=== PATIENT | female | born 1960 | race Caucasian/White ===

== ENCOUNTER 2022-10-01 08:24 | Outpatient (CLI) | payer OTHER, SELFPAY ==
[2022-10-01] MEDS: CLINDAMYCIN 600 MG/50 ML-D5W 600 MG/50 ML PIGGYBACK 100 MG IVPB (09:41)
--- NOTE | 2022-10-01 11:04 | W.ANESCHARGE ---
Anesthesia Charges Start Date/Time Anesthesia Start Date: 10/01/22 Anesthesia Start Time: 10:40 Stop Date/Time Anesthesia Stop Date: 10/01/22 Anesthesia Stop Time: 11:00
== END 2022-10-01 08:25 | disposition home or self-care (01) ==
PROVIDERS: PCP Physician Assistant Medical; Visit Provider Internal Medicine Gastroenterology
DX: R13.10 Dysphagia, unspecified (principal); K22.2 Esophageal obstruction; K44.9 Diaphragmatic hernia without obstruction or gangrene
CPT/HCPCS: 43248; 731; J2704; S0077

== ENCOUNTER 2023-02-19 10:45 | Outpatient (CLI) | payer OTHER, SELFPAY | END 2023-02-19 10:46 | disposition home or self-care (01) | LOC: INJ CL 10:46 | PROVIDERS: PCP Physician Assistant Medical; Visit Provider Family Medicine | DX: M54.16 Radiculopathy, lumbar region (principal); M51.36 Other intervertebral disc degeneration, lumbar region | CPT/HCPCS: 64483; J1100; Q9966 ==

== ENCOUNTER 2023-08-14 16:38 | Outpatient (CLI) | payer OTHER, SELFPAY | END 2023-08-14 16:39 | disposition home or self-care (01) | LOC: NFLDREF 08-19 03:20 | PROVIDERS: PCP Physician Assistant Medical; Referring Provider Physician Assistant Medical; Visit Provider Nurse Practitioner Family | DX: J02.9 Acute pharyngitis, unspecified (principal); R30.0 Dysuria | CPT/HCPCS: 87086; 87186 ==

== ENCOUNTER 2023-10-14 14:17 | Outpatient (CLI) | payer OTHER, SELFPAY ==
--- NOTE | 2023-10-14 14:30 | MR_ITS ---
Patient: SHARIF YATES Facility:?[facility] Patient ID:?[id number] Site Patient ID:?[id number]. Site :?[id number] Study:?MRI-Spine Lumbar WO-10/14/2023 4:02:50 PM Ordering Physician:MACARIO Final Report: Indication: Lumbar spinal stenosis. Technique: Noncontrast sagittal and axial T1, T2, and sagittal STIR sequences are provided. Comparison: No prior studies available for comparison at this institution. Findings: Mild levocurvature with apex at L3. There are 5 lumbar type vertebral bodies. Grade 1 anterolisthesis at L5-S1. Suggestion of possible left L5 pars defect. Benign intraosseous hemangioma in the T11 vertebral body. The conus medullaris is normal in signal and location. Anterior osteophytic spurring at L1-2 and L2-3 levels. Incidental bilateral renal simple cysts. Atrophy of paraspinal muscles. T12-L1: No significant spinal canal stenosis or neural foramen narrowing. L1-2: No significant spinal canal stenosis or neural foramen narrowing. L2-3: Mild circumferential disc bulge indents the ventral thecal sac. No significant spinal canal stenosis or neural foramen narrowing. L3-4: Circumferential disc bulge. Small left foramen disc protrusion. No significant spinal canal stenosis or neural foramen narrowing. L4-5: Mild posterior disc bulge, moderate facet arthrosis and ligamentum flavum buckling. Mild spinal canal narrowing. Mild left neural foramen narrowing. No right neural foramen narrowing. L5-S1: There is suggestion of possible left L5 pars defect. Grade 1 anterolisthesis, uncovering of the disc. Moderate facet arthrosis. Ankylosis of the left facet joint. No significant spinal canal stenosis. Mild neural foramina narrowing bilaterally. Impression : 1. No acute osseous or ligamentous abnormality. Grade 1 anterolisthesis at L5-S1 due to possible chronic left L5 pars defect. This could be further evaluated with CT. Ankylosis of the left L5-S1 facet joint. 2. At L5-S1, there is mild bilateral neural foramen narrowing. 3. At L4-5, there is mild spinal canal narrowing and mild left neural foramen narrowing. 4. At L3-4, there is a disc bulge and small left neural foramen disc protrusion without significant foramen stenosis. 5. No intradural pathology. Dictated by Masoud Del Cid MD @ 10/14/2023 4:17:46 PM Signed by:?Masoud Del Cid MD @10/14/2023 4:17:46 PM (Electronic Signature)
--- NOTE | 2023-10-14 15:15 | MR_ITS ---
Patient: SHARIF YATES Facility:?[facility] Patient ID:?[id number] Site Patient ID:?[id number]. Site :?1960 Study:?MRI-Hip Left WO-10/14/2023 4:04:48 PM Ordering Physician:MACARIO Final Report: EXAM: MRI OF THE LEFT HIP, WITHOUT CONTRAST CLINICAL INDICATION: Left hip pain. COMPARISON PLAIN FILMS: None. COMPARISON CROSS-SECTIONAL IMAGING STUDIES: None. TECHNICAL: Axial, sagittal and coronal PD FS small field of view images of the hip. Coronal T1, PD FS and axial T1 images of the pelvis. FINDINGS: LEFT HIP: Labrum: No labral tear or paralabral cyst. Articular Cartilage: Articular surfaces appear smooth without focal chondral defect or subchondral marrow changes. Joint Space: No effusion, synovitis or loose body. Proximal Femoral Morphology: No significant osseous bump. Femoral head-neck offset is within normal limits. Acetabular Morphology: No focal or global retroversion. No significant overcoverage. RIGHT HIP: No effusion or high-grade chondromalacia. No paralabral cyst. OSSEOUS STRUCTURES: No fracture, marrow edema or marrow replacement process. No evidence for avascular necrosis. MUSCULOTENDINOUS STRUCTURES AND BURSAE: Gluteus Minimus and Medius: Mild left gluteus medius tendinopathy. No tendon tear. No muscle atrophy or edema. Bursae: No trochanteric or iliopsoas bursitis. Common Hamstrings: No tendon tear or tendinopathy. Adductors and Flexors: Tendons and myotendinous junctions are intact. No muscle atrophy or edema. SOFT TISSUES: No subcutaneous edema, hematoma or fluid collection. OTHER JOINTS: Sacroiliac joints are maintained. Pubic symphysis is maintained. INTRAPELVIC CONTENTS: No mass, fluid collection or adenopathy. No inguinal hernia. NEUROVASCULAR STRUCTURES: No abnormality involving the visualized proximal femoral or proximal sciatic nerves. No aneurysmal dilation of the visualized distal aorta or iliac arterial circulation. IMPRESSION: 1. Mild left gluteus medius tendinopathy. 2. Remainder unremarkable. Dictated by Paramjit Pena MD @ 10/15/2023 8:55:21 AM Signed by:?Paramjit Pena MD @10/15/2023 8:55:21 AM (Electronic Signature)
== END 2023-10-14 14:18 | disposition home or self-care (01) ==
LOC: MRI 14:18
PROVIDERS: PCP Physician Assistant Medical; Visit Provider Family Medicine
DX: M48.061 Spinal stenosis, lumbar region without neurogenic claudication (principal); M51.36 Other intervertebral disc degeneration, lumbar region; M51.26 Other intervertebral disc displacement, lumbar region; M54.16 Radiculopathy, lumbar region; M54.17 Radiculopathy, lumbosacral region; M25.512 Pain in left shoulder
CPT/HCPCS: 72148; 73721

== ENCOUNTER 2024-04-10 08:18 | Outpatient (CLI) | payer OTHER, SELFPAY ==
--- OUTSIDE RECORDS SUMMARY | 2024-04-10 08:22 | XMS_ITS | Encounter Summary ---
Author Organization [facility] er Address [address] [place] [id number] Care Team Providers Care Customer Service Manager Name Role Phone None, Pcp Primary Care Provider Unavailabl e Reason for Visit * Reason Comments Vaginal Pain Encounter Details Date Type Department Care Team (Late st Contact Info) Description 02/10/2024 2:40 PM CDT Office Visit [facility] Continuity Manager [address] [place] [id number] [place] [address] [place] [address] [phone] Vaginal pain (Primary Dx); S/P sacrocolpopexy; Lumbosacral radiculopathy; DDD (degenerative disc disease), lumbosacral; Lumbar foraminal stenosis; Left buttock pain Social History Tobacco Use Types Packs/Day Years Used Date Smoking Tobacco: Former Cigarettes Smokeless Tobacco: Never Sex and Gender Information Value Date Recorded Sex Assigned at Not on file Gender Identity Not on file Sexual Orientation Not on file documented as of this encounter Last Filed Vital Signs Vital Sign Reading Time Taken Comments Blood Pressure 130/86 02/10/2024 2:47 PM CDT Pulse 103 02/10/2024 2:47 PM CDT Temperature - - Respiratory Rate - - Oxygen Saturation - - Inhaled Oxygen Concentration - - Weight 79.2 kg (174 lb 9.6 oz) 02/10/2024 2:47 P M CDT Height - - Body Mass Index - - documented in this encounter Progress Notes * Otis Dumont MD - 02/10/2024 2:40 PM CDT No referring provider defined for this encounter. Subjective Patient ID: is a 63 y.o. y.o. female. Chief Complaint Patient presents with Vaginal Pain HPI Mrs. George is a pleasant 63-year-old female from [facility]. I operated on her in 2013 at [facility] with a planned laparoscopic robotic sacrocolpopexy which was converted to an open sacrocolpopexy and posterior colpoperineorrhaphy. Unfortunately I was not able to review the operative report to know the reason that we needed to convert this to a laparotomy. In reviewing her symptoms she did have an does have baseline lumbosacral radiculopathy along with buttock pain please see notes below this has continued despite multiple interventions. Her current concern is a pain or discomfort that started approximately 2 years ago she describes this pain waking her from sleep the location is in the lower anterior or lower third of the vagina it is a sharp pain again that will wake her from sleep may last 10 minutes she will use her heating blanket and change positions the pain subsides as she notices she is falls back asleep. She feels the pain started with a slow onset she cannot really tell how the pain subsides with each episode as she falls asleep. The pain may be present 4 out of 7 nights is not there every night. The pain is not worsened by activity as she is on her feet for up to 10 hours at a time with no pain and again she notes normally only experiences while sleeping. It is not worsened by urination she does have some chronic constipation and will go 3 to 4 days without a bowel movement then take likely senna and then pass a fair amount of stool with straining shehas not really thought about or coordinated if this coincides with any of her worsening pain symptoms No other activity can cause the pain. She does get 10 oxycodone with a pain contract. She tries not to use these but does note when she does take 1 she will not be awoken with this type of pain. She has had no vaginal bleeding or any other vaginal symptoms and surgery Jossy Urrutia 10/30/2023 7:25 AM Chief Complaint Patient presents with Procedure Left glut ultrasound guided injection Left hip glut tendon/troch bursa injection with ultrasound guidance: After discussing risks benefits and alternatives, the patient wished to go ahead and was [facility]the [facility] at [facility]. I identified the target on the short and long axis of the ultrasound. The area was cleansed with a sterile ChloraPrep. Then I slowly advanced the needle into the left hip glut tendon/bursa under ultrasound visualization. Once in place the target was injected with 2cc betamethasone 6mg/mL, 2cc ropivacaine 0.5% and 2cc Lidocaine 1%, without complication. Images of the procedure with ultrasound guidance were saved. The patient tolerated the procedure well. I explained that the successful procedure was completed as planned. Post injection plans were reviewed with patient and outlined in MyChart. Any additional questions were addressed to their satisfaction. I reassessed them following the injections and they reported 80% relief from the diagnostic phase of the injection. The residual pain was the deep buttock pain likely from the lumbar spine. 10/03/2023 Office Visit Summary - [facility] Subjective: Sada George is a 63 y.o. female seen today for a follow up for her lumbar condition. She states her pain has unchanged since her last visit. Minimal to no back pain, predominantly left leg pain. Radicular pain into the left lower extremitie(s) has No change since her last visit. Constant left upper leg pain. Patient [facility]. Patient did have EMG on 09/20/23. Patient is here to discuss appointment and results. She is here to discuss options. Patient did have Left L5-S1 transforaminal BERLIN on 02/19/23. Patient did have some relief for minutes afterwards, but states otherwise no relief from the injection. Aggravating factors: sitting. Alleviating factors: not sitting. Sada is sleeping well, once she is positioned well. Cannot sleep on left side. Needs to sleep withlegs bent and pillow support. She has not been going to physical therapy. Sada has not been doing a regular exercise program. Does some light stretching in the mornings. Sada rates her pain at 5/10, activity scale 10. 03/29/2023 10:00 AM 10/03/2023 2:00 PM OSWESTRY DISABILITY INDEX (QUIRINO) v2.1A Date of exam 03/29/2023 10/03/2023 1. Pain intensity 2 - the pain is moderate at the moment 1 - the pain is very mild at the moment 2. Personal care (washing, dressing, etc.) 0 - I can look after myself normally without causing additional pain 0 - I can look after myself normally without causing additional pain 3. Lifting 0 - I can lift heavy weights without additional pain 3 - pain prevents me from lifting heavy weights but I can manage light to medium weights if they are conveniently positioned 4. Walking 0 - pain does not prevent me from walking any distance 2 - pain prevents me from walkingmore than a quarter of a mile 5. Sitting 5 - pain prevents me from sitting at all 3 - pain prevents me from sitting for more thanhalf an hour 6. Standing 0 - I can stand as long as I want without additional pain 0 - I can stand as long as I want without additional pain 7. Sleeping 1 - my sleep is occasionally interrupted by pain 1 - my sleep is occasionally interrupted by pain 8. Sex life (if applicable) 0 - my sex life is normal and causes no additional pain 1 - my sex lifeis normal but causes some additional pain 9. Social life 2 - pain has no significant effect on my social life apart from limiting my more energetic interests, e.g. sports, etc. 1 - my social life is normal but increases the degree of pain 10. Traveling 3 - pain restricts me to trips of less than one hour 3 - pain restricts me to trips of less than one hour Number of questions answered 50- 10 questions answered (total possible score of 50) 50- 10 questions answered (total possible score of 50) Score (max 50) 13 15 QUIRINO % Score 26 % 30 % She is taking the following for pain medications: Flexeril every night, Meloxicam nightly, Oxycodone seldomly (when pain is bad) The past medical history, medications, allergies, family history and social history are reviewed and outlined in the chart. Patient denies illness, fever, chills, night sweats, fatigue/being tired, loss of bowel or bladder control, joint swelling, muscle weakness, depression/coping difficulties or night pain, but there are the symptoms as described above. Objective: BP 139/89 (Cuff Site: Left Arm, Position: Sitting, Cuff Size: Adult Regular) Pulse 83 Temp 98.2??F (36.8 ??C) (Oral) LMP 05/24/2009 SpO2 98% Patient is cooperative, alert and in no acute distress. Posture: normal lordosis. Gait: Patient does not have an antalgic gait pattern. Assessment: ICD-10-CM 1. Lumbosacral radiculopathy at L5 M54.17 MR HIP LEFT WO CONTRAST MR SPINE LUMBAR WO 2. Left L5-S1 neuroforaminal stenosis M48.061 MR SPINE LUMBAR WO 3. Lumbar radiculopathy M54.16 MR SPINE LUMBAR WO 4. DDD (degenerative disc disease), lumbar M51.36 MR SPINE LUMBAR WO 5. Lumbar foraminal stenosis M48.061 MR SPINE LUMBAR WO 6. Left buttock pain M79.18 MR HIP LEFT WO CONTRAST Plan: We explained the natural history and expectations. Prior MRI with left L5-S1 neuroforaminal stenosis and ddd with loss of ht. I personally reviewed the images and explained to the patient. Prior injection, pain 5/10 to 2/10 with L5 transforaminal epidural steroid injection - was 6 monthsago.. The following treatment options were discussed: Continue the pescription medication management with meloxicam and occasional oxycodone Set up lumbar MRI, may need L5 treatment - consider repeat L5 transforaminal epidural steroid injection for diagnostic and therapeutic purposes. Continue the hip stability program, there is still the glut pain and possible piriformis contribution to the nerve pain Recommend hip MRI scan given the persistent pain, lack of relief from medications, rehabilitation, injection and home exercise program. We will call with the result and we can decide on further steps from there. We will call with the result and we can decide on further steps from there. The patient is to return to clinic depending on the results and next steps of treatment. Paramjit Phillips MD Sports Medicine 08/18/2013 Hospital Encounter Summary Michael Calhoun Jr., M.D. - HISTORY OF PRESENT ILLNESS Sada is a 53 year old female status post vaginal hysterectomy who presents to the clinic for evaluation of rectocele. She had hysterectomy on 12/19/2011, and was doing well postoperatively until 2012. She was seen by Dr. Xu Clark on 08/12/2013 for rectocele that she noted following a particularly severe coughing episode in fall. At that time, she felt a bubble come out of her vagina during cough. He noted rectocele during exam at that time, and recommended possible repair. Sada states that she is usually constipated, but does have occasional bouts of diarrhea. She admits to occasional splinting, and she does have some minor urinary incontinence with cough. She was on medication for nerve irritation, lower back. She has stopped that and is doing ok currently. SYSTEMS REVIEW Remarkable for constipation with occasional bouts of diarrhea. Patient does admit to straining, changes positions, and splitting during bowel movements. She also has some minimal urinary incontinencewith cough, but not with sneezing. No urge, no nocturia. Otherwise all systems are reviewed and arenegative. PAST MEDICAL/SURGICAL HISTORY PAST MEDICAL HISTORY: Negative. PAST SURGICAL HISTORY: Vaginal hysterectomy, 12/19/2011. Endometrial ablation, 2008. PHYSICAL EXAMINATION GENERAL: Patient appears well groomed and well nourished. No acute distress. Oriented times three. PELVIS: Vagina appears normal without lesions, discharge or rashes. Cervix and uterus are surgically absent. Very large rectocele, minimal cystocele. Some uv angle movement. Hard to tell how far apexmoves due to rectocele,. Rectal exam confirms this, no obvious enterocele felt. RECTUM: Small external hemorrhoid. Pin prick sensation intact. IMPRESSION/REPORT/PLAN Normal examination. PLAN: 1. Rectocele: Large rectocele was noted during exam today, and findings are consistent with evaluation by Dr. Xu Clark on 08/12/2013. Patient believes that this developed following a severe coughingepisode during fall of 2012. Based on the size of rectocele, I would recommend that she follow up with Urogynecology in [place] for further evaluation and surgical planning. Patient may require mesh placement. Risks and benefits of surgery were discussed today. Patient will continue to avoid straining with bowel movements, and she is encouraged to take stool softeners as needed for this. 2. Follow up: Patient will follow up with Urogynecology in [place] at her earliest convenience for surgery planning. She can be reached at [phone]. 2013 [facility] urogynecology Óscar Dumont MD Planned robotic abdominal sacrocolpopexy converted to open sacrocolpopexy with transvaginal posterior colpoperineorrhaphy (Records not able to be reviewed) Prolapse symptoms: Does not note any bulging or protruding tissue Bladder Symptoms: Is continent denies any stress urinary incontinence or urgency frequency symptoms Bowel Symptoms: Does has episodes of constipation may take 3 or 4 days before having a bowel movement which is stimulated by taking senna discussed trying to get more regular bowel regimen Sexual function: Not sexually active The following portions of the patient's chart were reviewed in this encounter and updated as appropriate: Tobacco Allergies Meds OB Status Review of Systems As per history of present illness with review of systems performed and pertinent systems negative Objective Physical Exam Vitals: 02/10/24 1447 BP: 130/86 Pulse: (!) 103 Pelvic exam Bridgette VAUGHN present. External genitalia appropriate for age. With cough and Valsalva no demonstrable leakage of urine or protrusion of tissue. Single digit vaginal exam perineum and perinealbody without tenderness. Normal caliber and depth in the vagina. No tenderness at the apex. No palpable mesh anteriorly or posteriorly. No significant cystocele or rectocele. Palpating the levator mus cles bilaterally notes normal tone no increase in tone with palpation or deep palpation no significant pain or discomfort. Palpating the spinous processes bilaterally again no significant increase inpain or tone in the vagina slightly aware of the left side more than the right. Palpating suburethral he at the bladder neck and bladder base notes no abnormalities no pain or tenderness was not ableto simulate the pain she gets during the melanite Assessment/Plan Diagnoses and all orders for this visit: Vaginal pain S/P sacrocolpopexy Lumbosacral radiculopathy DDD (degenerative disc disease), lumbosacral Lumbar foraminal stenosis Left buttock pain Had a lengthy discussion with Sada. I am not sure what the causes of her episodes of vaginal pain during the middle the night that wake her up from sleep. Discussed cannot reproduce any of her symptoms on exam nor do I feel or palpate anything abnormal. Discussed this may be a form of vaginal spasms or pelvic floor hypertonicity although it only happening during the night and waking her from sleep and only lasting a short period of time does not fitthe normal pattern. Discussed this may be related to her episodes of going up to 3 to 4 days without a bowel movement. I did ask her to monitor this and see if this correlates with episodes where she will get more constipated. She will stay in touch monitor symptoms am happy to see her back at any time if things change or worsen. Total time 45 minutes greater than 50% spent treatment time counseling documented in this encounter Plan of Treatment Not on file documented as of this encounter Visit Diagnoses Diagnosis Vaginal pain- Primary Unspecified symptom associated with female genital organs S/P sacrocolpopexy Lumbosacral radiculopathy Thoracic or lumbosacral neuritis or radiculitis, unspecified DDD (degenerative disc disease), lumbosacral Degeneration of lumbar or lumbosacral intervertebral disc Lumbar foraminal stenosis Left buttock pain Unspecified myalgia and myositis documented in this encounter Care Teams Customer Service Manager Relationship Specialty Start Date End Date None, Pcp [address] [place] [phone] PCP - General Safety Professional 02/10/24 documented as of this encounter
--- OUTSIDE RECORDS SUMMARY | 2024-04-10 08:22 | XMS_ITS | Clinical Summary ---
Author Organization [facility] Address [place], [place] [address] Care Team Providers Care It Systems Manager Name Role Phone Mitzi Martinez Primary Care Provider Allergies Active Allergy Reactions Criticality Noted Date Comments Amoxicillin Hives,Rash 06/27/2006 Cefaclor Hives Low 06/27/2006 Penicillins Hives,*Unknown 05/09/2009 Tetracycline Rash,Itching 06/27/2006 Medications Medication Sig Dispensed Refills Start Date End Date Status Virtussin AC 10-100 mg/5 mL liquidIndications: Cough TAKE 5 ML BY MOUTH AT BEDTIME NEEDED FOR COUGH. MAX DOSE 60 ML PER 24 HOURS 120 mL 03/28/2021 Active omeprazole (PRILOSEC) 20 mg Delayed-Release capsuleIndications :Dysphagia, unspecified type,Stricture and stenosis of esophagus Take 1 Capsule (20 mg) by mouth once daily before a meal. Take 30-60 minutes before a meal/food once a day. 90 Capsule 3 10/01/2022 Active predniSONE (DELTASONE) 20 mg tablet TAKE 2 TABLETS BY MOUTH EVERY DAY FOR 5 DAYS 06/12/2023 Active benzonatate (TESSALON) 200 mg capsule TAKE 1 CAPSULE BY MOUTH TWICE DAILY NEEDED FOR COUGH 06/12/2023 Active azithromycin (ZITHROMAX) 250 mg tablet TAKE 2 TABLET BY MOUTH TODAY THEN 1 TABLET BY MOUTH EVERY DAY FOR 4 DAYS 06/12/2023 Active nystatin (MYCOSTATIN) 100,000 unit/mL suspensionIndicati ons:Thrush Swish and swallow 5 mL (500,000 units) by mouth four times daily. 120 mL 06/14/2023 Active ciclopirox (CICLODAN) 8 % topical solutionIndication s:Toenail fungus APPLY TOPICALLY TO THE AFFECTED AREA AT BEDTIME 19.8 mL 1 11/26/2023 Active cyclobenzaprine (FLEXERIL) 10 mg tabletIndications: Spinal stenosis, lumbar region, without neurogenic claudication TAKE 1 TABLET BY MOUTH TWICE DAILY NEEDED FOR MUSCLE SPASM 180 Tablet 11/27/2023 Active oxyCODONE (ROXICODONE) 5 mg immediate release tabletIndications: Spinal stenosis, lumbar region, without neurogenic claudication,Myofa scial pain Take 1 Tablet (5 mg) by mouth every 4 hours if needed for Pain. 10 Tablet 01/10/2024 Active meloxicam 15 mg tabletIndications: Spinal stenosis, lumbar region, without neurogenic claudication,Myofa scial pain TAKE 1 TABLET(15 MG) BY MOUTH DAILY 90 Tablet 03/31/2024 Active meloxicam 15 mg tabletIndications: Spinal stenosis, lumbar region, without neurogenic claudication,Myofa scial pain Take 1 Tablet (15 mg) by mouth once daily. 90 Tablet 1 09/28/2023 Discontinued Active Problems Problem Noted Date Diagnosed Date Lumbosacral radiculopathy at L5 10/03/2023 Pain medication agreement signed 11/21/2015 Overview (02/13/2022): Low use of oxycodone for deep lumbar/buttock pain, has been to multiple specialists, surgery and no improvement. Uses sparingly as needed. Stable. Mitzi Martinez PA-C 02/13/2022 Myofascial pain 11/15/2015 Left buttock pain 11/15/2015 Long-term current use of opiate analgesic 2015 GERD (gastroesophageal reflux disease) 4 Overview (08/06/2013): EGD 07/2013 reflux Hyperplastic colon polyp 01/19/2013 Overview (01/19/2013): Colonoscopy 12/2012 polyp repeat in 10 years SVT (supraventricular tachycardia) 01/25/2012 Left L5-S1 neuroforaminal stenosis 05/09/2009 Other and unspecified hyperlipidemia 04/06/2008 Congenital single renal cyst 04/29/2007 Overview (04/29/2007): Right kidney Dilated aortic root, Needs SBE prophyllaxis 06/22 Headache(784.0) 06/27/2006 Depressive disorder, not elsewhere classified Overview (06/27/2006): intermittent Resolved Problems Problem Noted Date Diagnosed Date Resolved Date Status post laminectomy 11/15/201505/23 Sciatica 01/19/2008 06/14/2023 Pain in limb 06/27/2006 06/14/2023 Overview (06/27/2006): left leg pain Encounters Date Type Department Care Team Description 03/28/2024 Refill [facility] [address] [place] [address] Mitzi Martinez PA Refill Request (Meloxicam) 02/10/2024 10:15 AM CDT Ancillary Procedure [facility] [address] [place] [address] 02/10/2024 9:20 AM CDT Office Visit [facility] [address] [place] [address] Paramjit Phillips MD Musculoskeletal Problem (Follow up left hip and leg and low back pain) 02/10/2024 Travel 01/10/2024 Refill [facility] [address] [place] [address] Mitzi Martinez PA Refill Request from Last 3 Months Immunizations Name Administration Dates Next Due Hepatitis B (Adult) 11/29/2010,07/04/2010,2009 Influenza Virus, Unspecified 08/02/2015(Deferred : Patient Refused) Influenza, IIV3 (Age 6-35 mos) 05/12/2013,2011,05/27/2011 Influenza, IIV3 (Age >=3 years) 04/10/2012,06/02,06/11/2008 Influenza, IIV4 06/15/2016 Influenza, IIV4 (=>6mos) MDV 04/05/2017 Td (Age >=7 Years) 02/19/1999 Tdap 08/25/2009 Tuberculin (PPD) 05/31/2010 Family History Medical History Relation Name Comments Other Daughter migraines Heart Disease Father Cancer-breast Maternal Aunt Heart Disease Mother Cancer-breast Other maternal great grandmother Cancer-ovarian No Family History Relation Name Status Comments Daughter Father Maternal Aunt Mother Other Social History Tobacco Use Types Packs/Day Years Used Date Smoking Tobacco: Former Cigarettes Q uit: 08/28/2004 Smokeless Tobacco: Never Tobacco Cessation:Counseling Given: Yes Alcohol Use Standard Drinks/Week Comments No 0 (1 standard drink = 0.6 oz pur e alcohol) Zero PHQ-2 Answer Date Recorded PHQ-2 TOTAL SCORE 0 07/18/2020 Social Connections Answer Date Recorded Frequency of Communication with Friends and Fami ly 0 06/13/2023 Financial Resource Strain Answer Date R ecorded Difficulty of Paying Living Expenses 3 06/13/2023 Difficulty of Paying Living Expenses Not on file 06/13/2023 Food Insecurity Answer Date Recorded Worried About Running Out of Food in the Last Ye ar 1 06/13/2023 Transportation Needs Answer Date Record ed Lack of Transportation (Medical) 1 06/13/2023 Housing Stability Answer Date Recorded Unable to Pay for Housing in the Last Year 1 06/13/2023 Sex and Gender Information Value Date Recorded Sex Assigned at Not on file Gender Identity Not on file Sexual Orientation Not on file Obstetrics History Last Filed Vital Signs Vital Sign Reading Time Taken Comments Blood Pressure 122/86 02/10/2024 9:20 AM CDT Pulse 95 02/10/2024 9:20 AM CDT Temperature 36.8 ??C (98.2 ??F) 02/10/2024 9:20 AM CD T Respiratory Rate 18 06/27/2016 10:12 AM PROGRAM REVIEW DIRECTOR Oxygen Saturation 96% 02/10/2024 9:20 AM CDT Inhaled Oxygen Concentration - - Weight 79.1 kg (174 lb 6.4 oz) 02/10/2024 9:20 A M CDT shoes on Height 163 cm (5' 4.17) 06/14/2023 10:50 AM PROGRAM REVIEW DIRECTOR Body Mass Index 29.77 06/14/2023 10:50 AM PROGRAM REVIEW DIRECTOR Plan of Treatment Upcoming Encounters Date Type Department Care Team (Late st Contact Info) Description 04/10/2024 9:00 AM CDT Office Visit [facility] [address] [place] [address] Paramjit Phillips MD [address] [place] [address] Arrived 05/08/2024 10:00 AM CDT Office Visit [facility] [address] [place] [address] Paramjit Phillips MD [address] [place] [address] 06/12/2024 7:15 AM PROGRAM REVIEW DIRECTOR Office Visit [facility] [address] [place] [address] Paramjit Phillips MD [address] [place] [address] Health Maintenance Due Date Last Done Comments HIV for age 15-65 1977 Hepatitis C screening for age 18-79 1980 Zoster (shingles) series for age 50+ (1 of 2) 2012 Tetanus booster 08/25/2019 08/25/2009, 02/19/1999 Depression screening for age 12+ 07/18/2021 07/18/2020, 06/01/2019, 05/29/2019, Additional history exists COVID-19 vaccine series (2022- season) 2024 Influenza for age 50-64 03/22/2024 04/05/20 17, 06/15/2016, 04/10/2012, Additional history exists Mammogram for age 45-75 03/22/2024 03/22/20 23, 01/25/2022, 12/22/2020, Additional history exists BMI (ht and wt on same day) for age 18+ 06/14/2024 06/14/2023, 09/21/2022, 04/24/2021, Additional history exists Lipids for age 45-75 06/14/2028 06/14/2023, 09/21/2022, 07/18/2020, Additional history exists Colonoscopy through age 75 08/23/203308/23, 01/16/2013, 01/16/2013 Tdap Completed 08/25/2009 Pneumococcal series for age 6-64 Aged Out No longer eligible based on patient's age to complete this topic Procedures Procedure Name Priority Date/Time Associated Diagnosis Comments AMB EPIDURAL STEROID INJECTION Routine 04/10/2024 7:57 AM CDT Left L5-S1 neuroforaminal stenosis Lumbar radiculopathy XR KNEE WB 2 VIEWS BILATERAL AND 1 VIEW LEFT Routine 02/10/2024 10:18 AM CDT Chronic pain of left knee SCAN-COLONOSCOPY 08/23/2023 12:0 0 AM PROGRAM REVIEW DIRECTOR LIPID PANEL W REFLEX MEASURED LDL Routine 06/14/2023 11:44 AM PROGRAM REVIEW DIRECTOR Screening cholesterol level XR MAMMO ADIEL BILAT SCREEN Routine 03/22/2023 11:48 AM CDT Visit for screening mammogram from Last 3 Months or Most Recently Relevant to Health Maintenance Results * XR KNEE WB 2 VIEWS BILATERAL AND 1 VIEW LEFT (02/10/2024 10:18 AM CDT) Anatomical Region Laterality Modality KNEES, KNEE L Computed Radiogr aphy 02/10/2024 3:04 PM CDT Narrative 02/10/2024 3:04 PM CDT For Patients: ??As a result of the Century Cures Act, medical imaging exams and procedure reports are released immediately into your electronic medical record. ??You may view this report before your referring provider. ??If you have questions, please contact your health care provider. Indication: Chronic pain of left knee Technique: PA tunnel view standing film of both knees, standing lateral view left knee and patellofemoral view both knees, five views total Comparison: None Findings: Standing alignment is normal bilaterally. No fracture. No joint effusion. Minimal spurring at the patellofemoral compartment on the left. Impression: Mild patellofemoral compartment degenerative arthrosis left knee. Dictated by Masoud Rogers MD @ 02/10/2024 3:04:32 PM (Electronically Signed) Procedure Note Masoud Rogers MD - 02/10/2024 For Patients: As a result of the Cures Act, medical imagingexams and procedure reports are released immediately into your electronicmedical record. You may view this report before your referring provider.If you have questions, please contact your health care provider. Indication: Chronic pain of left knee Technique: PA tunnel view standing film of both knees, standing lateral view leftknee and patellofemoral view both knees, five views total Comparison: None Findings: Standing alignment is normal bilaterally. No fracture. No joint effusion.Minimal spurring at the patellofemoral compartment on the left. Impression: Mild patellofemoral compartment degenerative arthrosis left knee. Dictated by Masoud Rogers MD @ 02/10/2024 3:04:32 PM (Electronically Signed) Paramjit Phillips MD GENERAL IMAGING * SCAN-COLONOSCOPY (08/23/2023 12:00 AM PROGRAM REVIEW DIRECTOR) Scanner OTHER * (ABNORMAL) LIPID PANEL W REFLEX MEASURED LDL (06/14/2023 11:44 AM PROGRAM REVIEW DIRECTOR) CHOLESTEROL,TOTAL 207(H) 100 - 199 mg/dL 06/15/2023 12:32 AM PROGRAM REVIEW DIRECTOR [facility] Comment: Cholesterol, Total Reference Ranges Desirable <200 mg/dL Borderline 200-239 mg/dL High >=240 mg/dL TRIGLYCERIDES 206(H) <150 mg/dL 06/15/2023 12:32 AM PROGRAM REVIEW DIRECTOR [employer] [facility] HDL CHOLESTEROL 28(L) >40 mg/dL 12:32 AM PROGRAM REVIEW DIRECTOR [facility] NON-HDL CHOLESTEROL 179(H) <145 mg/dl 06/15/2023 12:32 AM PROGRAM REVIEW DIRECTOR [facility] CHOL/HDL RATIO 7.39(H) <4.50 06/15/2023 12:32 AM PROGRAM REVIEW DIRECTOR [facility] [employer] [facility] LDL CHOLESTEROL 138(H) <=130 mg/dL 06/15/2023 12:[address] [facility] VLDL CHOLESTEROL 41(H) <=30 mg/dL 06/15/2023 12:[address] [facility] PROVIDER ORDERED STATUS RANDOM 06/15/2023 12:[address] [facility] Blood BLOOD SPECIMEN / Unknown Venipuncture / Unknown 06/14/2023 11:44 AM PROGRAM REVIEW DIRECTOR 06/14/2023 11:44 AM PROGRAM REVIEW DIRECTOR Mitzi PELAEZ CHEMISTRY [facility] [address] [place] [address], [place] * XR MAMMO ADIEL BILAT SCREEN (03/22/2023 11:48 AM CDT) Anatomical Region Laterality Modality BREASTS, Breast Left, Breast Right Bilateral Mammography Impressions 03/22/2023 4:00 PM CDT ??There is no radiographic evidence for malignancy. ??Recommend annual mammograms. MAMMOGRAM ASSESSMENT: ??ACR 1 Negative PATIENTS: You will also receive a letter with your examination results in an easy to read format. ??If you have questions about your results, please contact your referring provider. Narrative 03/22/2023 4:00 PM CDT For Patients: As a result of the Century Cures Act, medical imaging exams and procedure reports are released immediately into your electronic medical record. You may view this report before your referring provider. If you have questions, please contact your health care provider. XR MAMMO ADIEL BILAT SCREEN [[id number]] CLINICAL HISTORY: ??This is an asymptomatic 62 y.o. patient. INDICATION FOR EXAM: Mammogram Screening. TECHNIQUE: CC & MLO views were obtained. ??This study was evaluated with the assistance of Computer-Aided Detection. Breast Tomosynthesis was used in interpretation. COMPARISON FILM: Yes 01/25/22 [facility] 12/22/20 [facility] FINDINGS: ??The breasts have scattered areas of fibroglandular density. There are no dominant masses, suspicious micro calcifications or areas of architectural distortion. Mitzi PELAEZ MAMMO from Last 3 Months or Most Recently Relevant to Health Maintenance Advance Directives * Full Code (Latest Code Status on File) Date Activated Date Inactivated Comments 05/09/2012 6:02 AM 05/09/2012 5:30 PM * Full Code Date Activated Date Inactivated Comments 08/31/2009 8:30 AM 09/01/2009 1:48 PM Care Teams It Systems Manager Relationship Specialty Start Date End Date Mitzi Martinez PA [address] [place] [address] PCP - General 02/02/10
--- OUTSIDE RECORDS SUMMARY | 2024-04-10 08:22 | XMS_ITS | Clinical Summary ---
Author Organization [facility] er Address [address] [place] [address] Care Team Providers Care Data Governance Analyst Name Role Phone None, Pcp Primary Care Provider Unavailabl e Allergies Active Allergy Reactions Criticality Noted Date Comments Cefaclor Hives Low 06/27/2006 Penicillins Hives,Rash 06/27/2006 Tetracycline Itching,Rash 06/27/2006 Medications Medication Sig Dispensed Refills Start Date End Date Status ciclopirox (PENLAC) 8 % solution Apply 1 application topically every night For toenails 11/26/2023 Active cyclobenzaprine (FLEXERIL) 10 MG tablet Take 1 tablet (10 mg total) by mouth 2 (two) times a day if needed for muscle spasms [facility]. Takes nightly per pt 11/27/2023 Active meloxicam (MOBIC) 15 MG tablet Take 1 tablet (15 mg total) by mouth daily 09/28/2023 Active Encounters Date Type Department Care Team Description 02/10/2024 2:40 PM CDT Office Visit [facility] Night Supervisor [address] [place] [address] Otis Dumont MD Vaginal pain (Primary Dx); S/P sacrocolpopexy; Lumbosacral radiculopathy; DDD (degenerative disc disease), lumbosacral; Lumbar foraminal stenosis; Left buttock pain from Last 3 Months Social History Tobacco Use Types Packs/Day Years Used Date Smoking Tobacco: Former Cigarettes Smokeless Tobacco: Never Sex and Gender Information Value Date Recorded Sex Assigned at Not on file Gender Identity Not on file Sexual Orientation Not on file Last Filed Vital Signs Vital Sign Reading Time Taken Comments Blood Pressure 130/86 02/10/2024 2:47 PM CDT Pulse 103 02/10/2024 2:47 PM CDT Temperature - - Respiratory Rate - - Oxygen Saturation - - Inhaled Oxygen Concentration - - Weight 79.2 kg (174 lb 9.6 oz) 02/10/2024 2:47 P M CDT Height - - Body Mass Index - - Plan of Treatment Health Maintenance Due Date Last Done Comments CT Colonography 1962 FIT-DNA 1962 Pap Smear 1962 Sigmoidoscopy 1962 iFOBT 1962 Zoster Vaccines (1 of 2) 2012 DTaP,Tdap,and Td Vaccines (3 - Td or Tdap) 08/25/2019 08/25/2009, 08/25/2009, 02/19/1999 COVID-19 Vaccine ( - season) 2024 Influenza Vaccine (#1) 2024 7, 06/15/2016, 05/12/2013, Additional history exists Mammogram 03/22/2024 03/22/2023, 090 07/2022, 01/25/2022, Additional history exists Colonoscopy 08/23/2033 08/23/2023 Colorectal Cancer Screening 08/23/2033 HPV Vaccines Aged Out No longer eligi ble based on patient's age to complete this topic Pneumococcal Vaccine: Pediatrics (0 to 5 Years) and At-Risk Patients (6 to 64 Years) Aged Out No longer eligible based on patient's age to complete this topic Care Teams Data Governance Analyst Relationship Specialty Start Date End Date None, Pcp [address] [facility] [place] [address] PCP - General Manager Ecommerce 02/10/24
--- OUTSIDE RECORDS SUMMARY | 2024-04-10 08:22 | XMS_ITS | Continuity of Care Document ---
Author Organization [facility] Address [address] [place] [address] Phone Care Team Providers Care Quality Engineer Name Role Phone Titus Wadsworth MD Unavailable Unavailable Allergies, Adverse Reactions, Alerts Substance Reaction Status Criticality Penicillins Hives, Dermatitis, Swelling Active No Information Medications Medication Instructions Dosage Effective Dates (start - stop) Status Comments Medrol ([place]) 4 mg Tabs in a Dose Pack take by po route as needed 0.00 - Active take as directed OXYCODONE HCL (unknown strength) Not Available - Active CYCLOBENZAPRINE HCL (unknown strength) Not Available - Active MELOXICAM (unknown strength) Not Available - Active Procedures Procedure Date Office/Outpatient Visit,New, Mod 2022 X-Ray Exam Lwr Spine, Min 4 Views Office/outpatient visit,est, mod 2010 Postop followup visit Low back disk surgery/decompress 2009 PA Assist Low back disk surgery/decompre ss Office/outpatient visit,est, mod 2009 Office/outpatient visit,est, mod 2006 Office consultation, moderate 7 Advance Directives Directive Yes / No Effective Date File Name No Information Encounters Encounter Description Practice Location Reason(s) For Visit Diagnoses Date Provider Providers Copied on Encounter [facility], [address], [place], [place], [id number], tel:[phone] No Information Mar-0 6-202 4 Wadsworth Titus. [facility], [address], [address], [place], [address], [place]. tel:[phone] Office/Outpa tient Visit,New, Mod [facility], [address], [place], [place], [id number], [place] tel:[phone] [facility] - Piper Spondylolist hesis, lumbar region Sep-2 2-202 3 Ermelinda Qureshi. [facility], [address], [address], [place], [address], [place]. tel:[phone] Referring Provider: Titus Castano, [facility] [address], [address], [place], [address]. tel:[phone] Office/outpa tient visit,est, mod Z [facility], [address], [place], [address], [place] tel:[phone] [facility] No Information Feb-2 2-201 1 Transfeldt Ensor. [facility], [address], [place], [place], [id number], [place]. tel:[phone] Referring Provider: Ron Nolasco, [facility] [address] [place] [address], [address]. tel:[phone] Z [facility], [address] [place] [address], [address], [place] tel:[phone] [facility] No Information Mar-2 3-201 0 Transfeldt Ensor. [facility], [address], [place], [place], [id number], [place]. tel:[phone] Referring Provider: [facility] [address] [place] [address], [address]. tel:[phone] Z [facility], [address], [address], [place] tel:[phone] [facility] No Information Mar-0 1-201 0 Transfeldt Ensor. [facility], [address], [place], [place], [id number], [place]. tel:[phone] Z [facility], [address], [place], [address], [place] tel:[phone] [facility] No Information 0-201 0 Transfeldt Ensor. [facility], [address], [place], [place], [id number], [place]. tel:[phone] Referring Provider: Ron Nolasco, [facility] [address] [place] [address], [address]. tel:[phone] Office/outpa tient visit,est, mod Z [facility], [address] [place] [address], [address], [place] tel:[phone] [facility] No Information 5-201 0 Transfeldt Ensor. [facility] [place], [address] [place] [address], [facility] [address], [place], [id number], [place]. tel:[phone] Referring Provider: Ron Nolasco, [facility] [address] [place] [address], [address]. tel:[phone] Office/outpa tient visit,est, mod Z [facility], [address] [place] [address], [address], [place] tel:[phone] [facility] No Information 6-200 7 Transfeldt Ensor. [facility], [address], [place], [place], [id number], [place]. tel:[phone] Referring Provider: Ron Nolasco, [facility] [address] [place] [address], [address]. tel:[phone] Office consultation , moderate Z [facility], [address] [facility], [place], [address], [place] tel:[phone] [facility] No Information 0-200 7 Transfeldt Ensor. [facility], [address], [facility] [address], [place], [place], [id number], [place]. tel:[phone] Referring Provider: Abel Felton [facility] [address] [place] [address], [address]. tel:[phone] Family History Family Member Type Diagnosis Age At Onset Mother Problem (finding) Cardiovascular disease Brother Problem (finding) Cardiovascular disease Father Problem (finding) Cardiovascular disease Payers Payer name Insurance type Covered constitution party ID Su perezhenny(s) OVIA [id number] Social History Type Description Quantity Date Captured Comments Sex Female Smoking Status No Information Chief Complaint And Reason For Visit No Information Reason For Referral Reason For Referral No Information History Of Present Illness Encounter Date Complaint History Of Prese nt Illness No Information Functional Status Date Functional Assessmen t No Information Instructions Date Instruction Additional Infor mation No Information Assessments Type Assessment Date No Information Patient Care Teams Name Effective Dates (start - stop) Status Members No Information
== END 2024-04-10 08:19 | disposition home or self-care (01) ==
LOC: INJ CL 08:19
PROVIDERS: PCP Physician Assistant Medical; Visit Provider Family Medicine
DX: M54.16 Radiculopathy, lumbar region (principal)
CPT/HCPCS: 64483; J1100; Q9966